=== PATIENT | male | born 1985 | race Native Hawaiian/Other Pacific Islander ===

== ENCOUNTER 2020-05-24 16:13 | Emergency (ER) | payer SELFPAY ==
[2020-05-24] MEDS ORDERED: ACETAMINOPHEN W/CODEINE 300-30 MG TAB PO ONE (16:18)
--- NOTE | 2020-05-24 16:18 | Event Note ---
ED Screening Note Date of service: 05/24/20 Time: 16:17 ED Screening Note: 34 y o male presents to ED status post head injury 20 minutes prior to arrival to ED. Patient states that he was fine up with ladder to his truck when the ladder fell back and hit him in the head. Patient states he had bleeding but did not have any loss of consciousness. Patient complains of headache. He denies nausea vomiting or dizziness All forms contusion 3 cm to the center of the forehead This initial assessment/diagnostic orders/clinical plan/treatment(s) is/are subject to change based on patients health status, clinical progression and re- assessment by fellow clinical providers in the ED. Further treatment and workup at subsequent clinical providers discretion. Patient/guardian urged not to elope from the ED as their condition may be serious if not clinically assessed and managed. Initial orders include: Pain medication, ice pack application
[2020-05-24 16:21] VITALS: BP 117/88
[2020-05-24] MEDS ORDERED: oxyCODONE /ACETAMINOPHEN 5-325MG TAB PO ONE (18:37)
--- NOTE | 2020-05-24 19:16 | Cat Scan Report ---
NONENHANCED CT SCAN OF THE HEAD: INDICATION / CLINICAL INFORMATION: 34 years Male; headache. TECHNIQUE: Routine CT head without contrast. All CT scans at this location are performed using CT dos e reduction for ALARA by means of automated exposure control. Some of the images are marred by motion related artifacts COMPARISON: None. FINDINGS: BRAIN / INTRACRANIAL CONTENTS: No acute hemorrhage, mass effect, midline shift, hydrocephalus, or acu te, large territorial infarct. No chronic infarct or focal atrophy. Normal brain volume and ventricul ar/sulcal size for age. No significant white matter abnormality. Right supraorbital scalp swelling is seen. Unfortunately, motion-related artifacts obscuring the deta ils at this level. Is there history of trauma Intracranial sequela from the trauma CRANIOCERVICAL JUNCTION: No significant abnormality. ORBITS: No significant abnormality of visualized orbits. SINUSES / MASTOIDS: No significant abnormality of the visualized paranasal sinuses or mastoid air ruby ls. ADDITIONAL FINDINGS: None. IMPRESSION: No acute focal parenchymal lesion in the brain Right supraorbital scalp hematoma; no intracranial sequela from the trauma Motion related artifacts obscuring the details through the inferior frontal and temporal lobes Signer Name: Ameena Poole MD Signed: 05/24/2020 7:12 PM Workstation Name: [id number]
--- NOTE | 2020-05-24 20:27 | Emergency Department Report ---
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 Knocked him down to the ground he reports no loss of consciousness but did have having a dull throbbing headache since the onset and. Reports no lightheadedness reports no presyncope reports no tinnitus. Ports no nausea, no vomiting. No neck pain. MD Complaint: head injury, head pain - Related Data Previous Rx's Medication Instructions Recorded Last Taken Type traMADoL [Ultram] 50 mg PO Q4HR PRN #20 tablet 05/24/20 Unknown Rx Allergies/Adverse reactions: Allergies Allergy/AdvReac Type Severity Reaction Status Date / Time No Known Allergies Allergy Unverified 05/24/20 16:14 ED Review of Systems ROS: Stated complaint: HEAD INJURY/PAIN Other details as noted in HPI Comment: All other systems reviewed and negative ED Past Medical Hx - Past Medical History Previous Medical History?: No - Surgical History Past Surgical History?: Yes Additional Surgical History: appendectomy - Social History Smoking Status: Never Smoker Substance Use Type: None - Medications Home Medications: Home Medications Medication Instructions Recorded Confirmed Last Taken Type traMADoL [Ultram] 50 mg PO Q4HR PRN #20 tablet 05/24/20 Unknown Rx ED Physical Exam - General Limitations: No Limitations General appearance: alert, in no apparent distress - Head Head exam: Present: atraumatic, normocephalic - Eye Eye exam: Present: normal appearance, other. Absent: nystagmus - ENT ENT exam: Present: normal exam, normal orophraynx, mucous membranes moist, TM's normal bilaterally, other - Neck Neck exam: Present: normal inspection, tenderness, full ROM. Absent: meningismus, lymphadenopathy, thyromegaly - Respiratory Respiratory exam: Present: normal lung sounds bilaterally. Absent: respiratory distress, wheezes, rales, chest wall tenderness, accessory muscle use - Cardiovascular Cardiovascular Exam: Present: regular rate, normal rhythm, normal heart sounds. Absent: bradycardia, tachycardia, systolic murmur, diastolic murmur, rubs, gallop - GI/Abdominal GI/Abdominal exam: Present: soft, normal bowel sounds. Absent: distended, tenderness, guarding, hyperactive bowel sounds, hypoactive bowel sounds, organomegaly - Rectal Rectal exam: Present: deferred - Extremities Exam Extremities exam: Present: normal inspection - Back Exam Back exam: Present: normal inspection. Absent: CVA tenderness (R), CVA te nderness (L), muscle spasm - Neurological Exam Neurological exam: Present: alert, oriented X3, CN II-XII intact - Psychiatric Psychiatric exam: Present: normal affect, normal mood. Absent: anxious, flat affect, manic - Skin Skin exam: Present: warm, dry, intact, normal color. Absent: rash, cyanosis, diaphoretic, erythema ED Course Vital Signs 05/24/20 16:20 Temperature 98.4 F Pulse Rate 90 Respiratory 18 Rate Blood Pressure 117/88 O2 Sat by Pulse 97 Oximetry - Radiology Data Radiology results: report reviewed [facility] [address] [place] [address] Cat Scan Report Signed Patient: COMFORT CARCAMO MR#: [id number] : 1985 Acct:[id number] Age/Sex: 34 / M ADM Date: 05/24/20 Loc: ED Attending Dr: Ordering Physician: CHRISTINE AYERS Date of Service: 05/24/20 Procedure(s): CT head/brain wo con Accession Number(s): [id number] cc: CHRISTINE AYERS NONENHANCED CT SCAN OF THE HEAD: INDICATION / CLINICAL INFORMATION: 34 years Male; headache. TECHNIQUE: Routine CT head without contrast. All CT scans at this location are performed using CT dose reduction for ALARA by means of automated exposure control. Some of the images are marred by motion related artifacts COMPARISON: None. FINDINGS: BRAIN / INTRACRANIAL CONTENTS: No acute hemorrhage, mass effect, midline shift, hydrocephalus, or acute, large territorial infarct. No chronic infarct or focal atrophy. Normal brain volume and ventricular/sulcal size for age. No significant white matter abnormality. Right supraorbital scalp swelling is seen. Unfortunately, motion-related artifacts obscuring the details at this level. Is there history of trauma Intracranial sequela from the trauma CRANIOCERVICAL JUNCTION: No significant abnormality. ORBITS: No significant abnormality of visualized orbits. SINUSES / MASTOIDS: No significant abnormality of the visualized paranasal s inuses or mastoid air cells. ADDITIONAL FINDINGS: None. IMPRESSION: No acute focal parenchymal lesion in the brain Right supraorbital scalp hematoma; no intracranial sequela from the trauma Motion related artifacts obscuring the details through the inferior frontal and temporal lobes Signer Name: Ameena Poole MD Signed: 05/24/2020 7:12 PM Workstation Name: [id number] Transcribed By: BS Dictated By: Ameena Machado MD Electronically Authenticated By: Ameena Machado MD Signed Date/Time: 05/24/201911 DD/ 07 TD/TT: - Medical Decision Making current Nigel coma scale 15. Does have large occiput to hematoma. No skull crepitance or stepoff. No Marcano sign. No raccoon eyes. No fluid from nose or ears. No nasal septal hematoma. No open wounds. No cervical spine tenderness. CT scan performed to evaluate for any intracranial injury or skull fracture. Patient is protecting airway and otherwise has an unremarkable secondary trauma survey. Given instructions regarding supportive care including pain meds as needed, return precautions, follow-up with primary physician. Critical care attestation.: If time is entered above; I have spent that time in minutes in the direct care of this critically ill patient, excluding procedure time. ED Disposition Clinical Impression: Head trauma, Frontal head injury, Contusion of head Disposition: DC-01 TO HOME OR SELFCARE Is pt being admited?: No Does the pt Need Aspirin: No Condition: Stable Instructions: Contusion, Facial or Scalp Contusion, [id number], Head Injury, Adult, [id number], Concussion, Adult Prescriptions: traMADoL [Ultram] 50 mg PO Q4HR PRN #20 tablet PRN Reason: Pain Referrals: [facility] [Provider Group] - 3-5 Days
== END 2020-05-24 20:20 | disposition home or self-care (01) ==
LOC: ED 16:13
DX: S00.93XA Contusion of unspecified part of head, initial encounter (principal); S09.90XA Unspecified injury of head, initial encounter; Z90.49 Acquired absence of other specified parts of digestive tract; Z79.899 Other long term (current) drug therapy; W17.89XA Other fall from one level to another, initial encounter; Y93.89 Activity, other specified; Y92.89 Other specified places as the place of occurrence of the external cause; Y99.8 Other external cause status
CPT/HCPCS: 70450